=== PATIENT | male | born 1950 ===

== ENCOUNTER 2017-07-15 09:53 | Observation (INO) | payer MEDICARE ==
--- NOTE | 2017-07-15 10:02 | C.PDOC ---
History Of Present Illness POOR HISTORIAN. 67 Y/O MALE BIBA FOR NEW ONSET EPIGASTRIC PAIN FOR 30 MINS PRIOR TO ARRIVAL. PT REPORTS PAIN ONSET WHILE DOING ROUTINE EXERCISE. ALSO REPORTS ASSOCIATED LIGHTHEADEDNESS; NOW IMPROVED, BUT STILL WITH RESIDUAL EPIGASTRIC DISCOMFORT. DENIES CARDIAC HISTORY. REPORTS COMPLIANT WITH BP MEDS AND TOOK REGULAR BP MEDS THIS MORNING. PER EMS, CONCERN FOR DYNAMIC EKG CHANGES EN ROUTE, S/P 500 BOLUS FLUIDS GIVEN BY EMS. EKG STRIP REVIEWED, DYNAMIC CHANGES IN INFERIOR LATERAL LEADS, NO ST CHANGES. OTHERWISE, DENIES FEVER, CHILLS, SOB, NAUSEA, VOMITING, OR OTHER ASSOCIATED SYMPTOMS. Time Seen by Provider: 07/15/17 09:59 Chief Complaint (Nursing): Chest Pain History Per: Patient History/Exam Limitations: no limitations Onset/Duration Of Symptoms: Mins Current Symptoms Are (Timing): Better Quality: "Pain" Associated Symptoms: denies: Dyspnea, Diaphoresis, Syncope Recent travel outside of the [place]: No Past Medical History Reviewed: Historical Data, Nursing Documentation, Vital Signs Vital Signs: Last Vital Signs Temp 97.8 F 07/15/17 09:55 Pulse 52 L 07/15/17 10:48 Resp 16 07/15/17 10:48 BP 119/64 07/15/17 10:48 Pulse Ox 99 07/15/17 10:48 Family History: States: Unknown Family Hx Review Of Systems Except As Marked, All Systems Reviewed And Found Negative. Constitutional: Negative for: Fever, Chills Cardiovascular: Negative for: Palpitations, Light Headedness (RESOLVED) Respiratory: Negative for: Cough, Shortness of Breath, Wheezing Gastrointestinal: Positive for: Abdominal Pain (EPIGASTRIC). Negative for: Nausea, Vomiting Skin: Negative for: Rash Neurological: Negative for: Headache, Dizziness Physical Exam - Physical Exam Appears: Non-toxic, No Acute Distress Skin: Normal Color, Warm, Dry Head: Atraumatic, Normacephalic Oral Mucosa: Moist Chest: Symmetrical Cardiovascular: Rhythm Regular, No Murmur Respiratory: Normal Breath Sounds, No Rales, No Rhonchi, No Wheezing Gastrointestinal/Abdominal: Soft, No Tenderness, No Guarding, No Rebound Back: Normal Inspection Extremity: Normal ROM, Capillary Refill (< 2 SEC. ) Neurological/Psych: Oriented x3, Normal Speech, Normal Cognition ED Course And Treatment - Laboratory Results Result Diagrams: 07/15/17 10:10 07/15/17 10:10 ECG: Interpreted By Me ECG Rhythm: Sinus Bradycardia Interpretation Of ECG: twi v5-6; [id number] Rate From EC Progress - Re-Evaluation Re-evaluation Note: 07/15/17 10:53 EXAM UNCH PRIOR. D/W DR MU PIZANO MARBLE CARVER WILL ADMIT - Data Reviewed Data Reviewed: Lab, Diagnostic imaging, EKG, Old records - Critical Care Citical Care: Excluding Proc Time Critical Care Time: 90 minutes - Continuity of Care Discussed patient case with:: Patient Disposition Counseled Patient/Family Regarding: Studies Performed, Diagnosis, Need For Followup - Disposition Disposition: HOSPITALIZED Disposition Time: 10:54 Condition: STABLE Forms: [employer]Robo (Vincentian) - POA Present On Arrival: None - Clinical Impression Clinical Impression: Chest pain - Scribe Statement The provider has reviewed the documentation as recorded by the Scribe SM All medical record entries made by the Scribe were at my direction and personally dictated by me. I have reviewed the chart and agree that the record accurately reflects my personal performance of the history, physical exam, medical decision making, and the department course for this patient. I have also personally directed, reviewed, and agree with the discharge instructions and disposition. Decision To Admit - Pt Status Changed To: Hospital Disposition Of: Observation - . Bed Request Type: Telemetry Admitting Physician: Quan Huggins Jr. Patient Diagnosis: Chest pain
[2017-07-15] MEDS ORDERED: Aspirin 325 mg EC Tablets PO STA (10:03)
[2017-07-15] MEDS ORDERED: Sodium Chloride 0.9% 1,000 ML IV ONE (10:03)
[2017-07-15] MEDS ORDERED: Sodium Chloride 0.9% 500 ML IV ONE ×2 (10:03→10:15)
[2017-07-15] MEDS ORDERED: Aspirin 325 mg EC Tablets PO ONE (10:15)
[2017-07-15] MEDS ORDERED: Sodium Chloride 0.9% 1,000 ML ONE (10:16)
[2017-07-15 10:17] LABS: EOS # 0.1 K/uL (0.0-0.7); LYMPH # 1.1 K/uL (1.0-4.3); MEAN CORPUSCULAR HGB CONC 34.5 g/dL (33.0-37.0)
[2017-07-15 10:22] LABS: INR 1.1
[2017-07-15 10:29] LABS: BASO % 0.7 % (0.0-2.0); CHLORIDE 100 mmol/L (98-107); EOS % 0.7 % (0.0-4.0); HEMATOCRIT 36.3 % (35.0-51.0); MEAN CELL VOLUME 78.7 fL (80.0-94.0); MEAN CORPUSCULAR HEMOGLOBIN 27.1 pg (27.0-31.0); MEAN PLATELET VOLUME 10.5 fL (7.2-11.7); MONO # 0.7 K/uL (0.0-0.8); MONO % 9.4 % (0.0-10.0); NRBC % 0.4 % (0.0-2.0); RED CELL DISTRIBUTION WIDTH 15.3 % (11.5-14.5); SODIUM 137 mmol/L (132-148); WHITE BLOOD COUNT 7.2 K/uL (4.8-10.8)
[2017-07-15 10:30] LABS: POTASSIUM 3.4 mmol/L (3.6-5.2)
[2017-07-15 10:31] LABS: GFR AFRICAN-AMERICAN > 60
[2017-07-15 10:32] LABS: ALB/GLOB RATIO 1.4 (1.0-2.1); ALKALINE PHOSPHATASE 74 U/L (38-126); ALT/SGPT 35 U/L (21-72); AST/SGOT 19 U/L (17-59); BILIRUBIN,TOTAL 1.5 mg/dL (0.2-1.3); BLOOD UREA NITROGEN 24 mg/dL (9-20); CARBON DIOXIDE 25 mmol/L (22-30); GLUCOSE,RANDOM 178 mg/dL (75-110); TOTAL PROTEIN 6.5 g/dL (6.3-8.3)
[2017-07-15 10:33] LABS: CALCIUM 8.5 mg/dl (8.6-10.4); MAGNESIUM 1.8 mg/dL (1.6-2.3)
--- NOTE | 2017-07-15 10:39 | RAD ---
PROCEDURE: CHEST RADIOGRAPH, 1 VIEW HISTORY: chest pain COMPARISON: None available. FINDINGS: LUNGS: No infiltrate bilaterally. PLEURA: No pneumothorax or pleural fluid seen. CARDIOVASCULAR: Normal. OSSEOUS STRUCTURES: No significant abnormalities. VISUALIZED UPPER ABDOMEN: Normal. OTHER FINDINGS: None. IMPRESSION: No acute cardiopulmonary disease identified.
--- NOTE | 2017-07-15 12:44 | CP.PCM.HP ---
History of Present Illness - History of Present Illness History of Present Illness: PGY1 Medicine Note for Dr. Huggins 67 year old male with a PMHx of HTN, HLD and DM presented to the ED complaining of chest pain. Patient stated the pain started at 9:30 AM while exercising on an abdominal crunch machine. When asked to point the location of the pain, the patient points to his epigastric region, NOT chest. The pain was described as sharp, non-radiating, rated 8/10. The pain lasted about 7 min before resolving on its own. The episode was followed by mild dizziness and weakness. Patient denies sweats unrelated to exercise. Patient states he had a carbohydrate drink this morning before exercising and did not take his Metformin this morning. He usually takes Metformin after meals. As per daughter, this is not the first time that this happened. The patient came to the hospital approximately 3-4 years ago for a similar event. The patient was hospitalized to have a cardiac work up, but everything came back normal, per patient and daughter. The daughter states when this has happened in the past, the patient loses all of the color in his face and looks like he is about to pass out. Of note, patient just returned from a 19 day vacation in two days ago, on which he ate sporadically and did not do his routine morning exercises. Denies recent illness, fever, nausea, vomiting, lightheadedness, SOB. Patient states he does not check his blood sugar at home often. At ED, glucose was 178. PMHx: HTN, HLD, DM Medications: see list Allergies: NKDA FamHx: father had HTN, DM, of [place] at age 83 SocialHx: , lives with ; denies tobacco/alcohol/drug use; tries to eat a vegetarian diet but does eat chicken and fish; retired accountant cost Present on Admission - Present on Admission Any Indicators Present on Admission: No Review of Systems - Constitutional Constitutional: Weakness. absent: Anorexia, Chills, Headache - EENT Eyes: absent: Change in Vision, Loss of Vision Nose/Mouth/Throat: absent: Nasal Congestion, Nasal Discharge, Sore Throat, Neck Pain - Cardiovascular Cardiovascular: Lightheadedness. absent: Chest Pain, Diaphoresis, Edema, Leg Edema, Palpitations, Paroxysmal Nocturnal Dyspnea, Pedal Edema, Radiating Pain, Syncope - Respiratory Respiratory: absent: Dyspnea, Dyspnea on Exertion - Gastrointestinal Gastrointestinal: Abdominal Pain (epigastric, sharp - lasting 7 minutes ). absent: Belching, Bloating, Change in Bowel Habits, Coffee Ground Emesis, Constipation, Cramping, Diarrhea, Melena, Nausea, Vomiting - Musculoskeletal Musculoskeletal: absent: Arthralgias, Muscle Cramps, Numbness, Stiffness, Tingling - Neurological Neurological: absent: Abnormal Gait, Disequilibrium, Dizziness, Numbness, Headaches, Loss of Vision, Syncope, Tingling, Vertigo - Psychiatric Psychiatric: Other (Stress - recently returned from [place], his mother is sick.) - Endocrine Endocrine: absent: Excessive Sweating, Fatigue, Palpitations, Polydipsia, Polyphagia Past Patient History - Past Social History Smoking Status: Never Smoked - CARDIAC Hx Hypertension: Yes - ENDOCRINE/METABOLIC Hx Diabetes Mellitus Type 2: Yes - MUSCULOSKELETAL/RHEUMATOLOGICAL Hx Arthritis: Yes - PSYCHIATRIC Hx Substance Use: No - SURGICAL HISTORY Hx Surgeries: No - ANESTHESIA Hx Anesthesia: No Meds Allergies/Adverse Reactions: Allergies Allergy/AdvReac Type Severity Reaction Status Date / Time No Known Allergies Allergy Verified 07/15/17 09:54 Physical Exam - Constitutional Appears: Well, Toxic, No Acute Distress - Head Exam Head Exam: ATRAUMATIC, NORMOCEPHALIC - Eye Exam Eye Exam: EOMI, Normal appearance, PERRL - ENT Exam ENT Exam: Mucous Membranes Moist - Neck Exam Neck exam: Positive for: Normal Inspection. Negative for: Lymphadenopathy, Tenderness - Respiratory Exam Respiratory Exam: Clear to Auscultation Bilateral, NORMAL BREATHING PATTERN. absent: Accessory Muscle Use, Rales, Rhonchi, Wheezes, Respiratory Distress - Cardiovascular Exam Cardiovascular Exam: Bradycardia, Irregular Rhythm, +S1, +S2. absent: JVD - GI/Abdominal Exam GI & Abdominal Exam: Normal Bowel Sounds, Soft. absent: Distended, Firm, Guarding, Rebound, Rigid, Tenderness - Extremities Exam Extremities exam: Positive for: normal capillary refill, normal inspection, pedal pulses present. Negative for: calf tenderness, pedal edema, tenderness - Back Exam Back exam: NORMAL INSPECTION. absent: CVA tenderness (L), CVA tenderness (R), paraspinal tenderness, tenderness, vertebral tenderness - Neurological Exam Neurological exam: Alert, CN II-XII Intact, Oriented x3 - Psychiatric Exam Psychiatric exam: Normal Affect, Normal Mood - Skin Skin Exam: Dry, Normal Color, Warm Results - Vital Signs Recent Vital Signs: Last Vital Signs Temp 97.8 F 07/15/17 09:55 Pulse 52 L 07/15/17 12:38 Resp 16 07/15/17 12:38 BP 163/77 H 07/15/17 12:38 Pulse Ox 100 07/15/17 12:38 - Labs Result Diagrams: 07/15/17 10:10 07/15/17 10:10 Labs: Laboratory Results - last 24 hr 07/15/17 07/15/17 07/15/17 10:01 10:10 10:10 WBC 7.2 RBC 4.62 Hgb 12.5 Hct 36.3 MCV 78.7 L MCH 27.1 MCHC 34.5 RDW 15.3 H Plt Count 103 L MPV 10.5 Neut % (Auto) 73.2 Lymph % (Auto) 16.0 L Cotton % (Auto) 9.4 Eos % (Auto) 0.7 Baso % (Auto) 0.7 Neut # 5.3 Lymph # 1.1 Cotton # 0.7 Eos # 0.1 Baso # 0.0 Differential Comment PT 12.3 H INR 1.1 APTT 19 L Sodium Potassium Chloride Carbon Dioxide Anion Gap BUN Creatinine Est GFR ( Amer) Est GFR (Non-Af Amer) POC Glucose (mg/dL) 208 H Random Glucose Calcium Magnesium Total Bilirubin AST ALT Alkaline Phosphatase Troponin I Total Protein Albumin Globulin Albumin/Globulin Ratio 07/15/17 10:10 WBC RBC Hgb Hct MCV MCH MCHC RDW Plt Count MPV Neut % (Auto) Lymph % (Auto) Cotton % (Auto) Eos % (Auto) Baso % (Auto) Neut # Lymph # Cotton # Eos # Baso # Differential Comment PT INR APTT Sodium 137 Potassium 3.4 L Chloride 100 Carbon Dioxide 25 Anion Gap 15 BUN 24 H Creatinine 1.4 Est GFR ( Amer) > 60 Est GFR (Non-Af Amer) 50 POC Glucose (mg/dL) Random Glucose 178 H Calcium 8.5 L Magnesium 1.8 Total Bilirubin 1.5 H AST 19 ALT 35 Alkaline Phosphatase 74 Troponin I < 0.0120 Total Protein 6.5 Albumin 3.8 Globulin 2.7 Albumin/Globulin Ratio 1.4 Assessment & Plan - Assessment and Plan (Free Text) Assessment: Epigastric Pain * CXR 07/15/17 - No acute cardio/pulm disease seen * EKG * Troponin - <0.0120; f/u trops x 2 * f/u TSH, T4, ECHO * Aspirin 81mg PO daily * Isosorbide Mononitrate 20mg PO daily * Losartan 100mg PO daily * Crestor 5mg PO HS * HCTZ 12.5 mg PO daily HTN Continue home medications * Isosorbide Mononitrate 20mg PO daily * Losartan 100mg PO daily * HCTZ 12.5mg PO daily HLD Continue home medications * Crestor 5mg PO HS Diabetes * Patient's home medications held * Metformin 1000 PO BID - held * Glimepiride unknown amount - held * Placed on low dose Insulin Sliding Scale * Hypoglycemic protocol Prophylactic Care * Heparin 5000 units SC Q8H * Pepcid 20mg PO daily Will call patient's pharmacy to confirm home medications. Will discuss case with Dr. Bhavna Bocanegra PGY1 - Date & Time Date: 07/15/17 Time: 11:45
[2017-07-15] MEDS ORDERED: Glucagon Recombinant 1 mg Inj IM PRN (13:14)
[2017-07-15] MEDS ORDERED: Dextrose 50% SYRINGE Inj (50 ml) IVP PRN (13:21)
[2017-07-15] MEDS ORDERED: Pneumococcal 23-Valent Vaccine IM ONE (14:28)
[2017-07-15] MEDS ORDERED: Influenza Vaccine 60 mcg/0.5 mL SYR (4YR UP) IM ONE (14:30)
[2017-07-15] MEDS: (Novolog) Insulin Aspart, Recombinant 100 u/ml 10 ml vial SC SCH ×2 (16:58→21:49)
[2017-07-15 23:50] VITALS: RESP 20
[2017-07-16 08:15] LABS: BASO % 0.9 % (0.0-2.0); EOS # 0.1 K/uL (0.0-0.7); EOS % 1.4 % (0.0-4.0); HEMATOCRIT 36.2 % (35.0-51.0); LYMPH # 0.8 K/uL (1.0-4.3); LYMPH % 19.7 % (20.0-40.0); MEAN CORPUSCULAR HEMOGLOBIN 27.5 pg (27.0-31.0); MEAN CORPUSCULAR HGB CONC 34.9 g/dL (33.0-37.0); MEAN PLATELET VOLUME 10.8 fL (7.2-11.7); MONO # 0.4 K/uL (0.0-0.8); MONO % 9.5 % (0.0-10.0); NRBC % 0.1 % (0.0-2.0); RED CELL DISTRIBUTION WIDTH 15.1 % (11.5-14.5); WHITE BLOOD COUNT 4.2 K/uL (4.8-10.8)
[2017-07-16 08:37] LABS: CHLORIDE 101 mmol/L (98-107)
[2017-07-16 08:38] LABS: POTASSIUM 3.7 mmol/L (3.6-5.2); SODIUM 136 mmol/L (132-148)
[2017-07-16 08:40] LABS: AST/SGOT 23 U/L (17-59); BILIRUBIN,TOTAL 1.2 mg/dL (0.2-1.3); CARBON DIOXIDE 25 mmol/L (22-30); GFR AFRICAN-AMERICAN > 60
[2017-07-16 08:41] LABS: ALB/GLOB RATIO 1.3 (1.0-2.1); ALKALINE PHOSPHATASE 72 U/L (38-126); ALT/SGPT 29 U/L (21-72); BLOOD UREA NITROGEN 19 mg/dL (9-20); CALCIUM 8.7 mg/dl (8.6-10.4); GLUCOSE,RANDOM 148 mg/dL (75-110); TOTAL PROTEIN 6.5 g/dL (6.3-8.3)
[2017-07-16 09:11] LABS: THYROID STIMULATING HORMONE 0.97 mIU/L (0.46-4.68)
[2017-07-16] MEDS: (Novolog) Insulin Aspart, Recombinant 100 u/ml 10 ml vial SC SCH ×3 (10:24→17:27)
[2017-07-16 15:46] VITALS: BP 154/80; PULSE 50; TEMP 97.2; O2SAT 99
--- NOTE | 2017-07-16 18:33 | CP.PCM.DIS ---
Provider - Provider Date of Admission: 07/15/17 10:54 Attending physician: Quan Huggins Jr, MD Time Spent in preparation of Discharge (in minutes): 33 Diagnosis - Discharge Diagnosis (1) Chest pain, rule out acute myocardial infarction Status: Acute (2) Epigastric abdominal pain Status: Acute (3) Hypertension Status: Chronic (4) Hyperlipidemia Status: Chronic (5) Diabetes Status: Chronic (6) Prophylactic measure Status: Acute Hospital Course - Lab Results Lab Results: Most Recent Lab Values WBC 4.2 K/uL (4.8-10.8) L 07/16/17 07:56 RBC 4.59 Mil/uL (4.40-5.90) 07/16/17 07:56 Hgb 12.6 g/dL (12.0-18.0) 07/16/17 07:56 Hct 36.2 % (35.0-51.0) 07/16/17 07:56 MCV 79.0 fL (80.0-94.0) L 07/16/17 07:56 MCH 27.5 pg (27.0-31.0) 07/16/17 07:56 MCHC 34.9 g/dL (33.0-37.0) 07/16/17 07:56 RDW 15.1 % (11.5-14.5) H 07/16/17 07:56 Plt Count 98 K/uL (130-400) L 07/16/17 07:56 MPV 10.8 fL (7.2-11.7) 07/16/17 07:56 Neut % (Auto) 68.5 % (50.0-75.0) 07/16/17 07:56 Lymph % (Auto) 19.7 % (20.0-40.0) L 07/16/17 07:56 Guthrie % (Auto) 9.5 % (0.0-10.0) 07/16/17 07:56 Eos % (Auto) 1.4 % (0.0-4.0) 07/16/17 07:56 Baso % (Auto) 0.9 % (0.0-2.0) 07/16/17 07:56 Neut # 2.9 K/uL (1.8-7.0) 07/16/17 07:56 Lymph # 0.8 K/uL (1.0-4.3) L 07/16/17 07:56 Guthrie # 0.4 K/uL (0.0-0.8) 07/16/17 07:56 Eos # 0.1 K/uL (0.0-0.7) 07/16/17 07:56 Baso # 0.0 K/uL (0.0-0.2) 07/16/17 07:56 Differential Comment 07/15/17 10:10 PT 12.3 SECONDS (9.7-12.2) H 07/15/17 10:10 INR 1.1 07/15/17 10:10 APTT 19 SECONDS (21-34) L 07/15/17 10:10 Sodium 136 mmol/L (132-148) 07/16/17 07:56 Potassium 3.7 mmol/L (3.6-5.2) 07/16/17 07:56 Chloride 101 mmol/L (98-107) 07/16/17 07:56 Carbon Dioxide 25 mmol/L (22-30) 07/16/17 07:56 Anion Gap 13 (10-20) 07/16/17 07:56 BUN 19 mg/dL (9-20) 07/16/17 07:56 Creatinine 1.1 mg/dL (0.8-1.5) 07/16/17 07:56 Est GFR ( Amer) > 60 07/16/17 07:56 Est GFR (Non-Af Amer) > 60 07/16/17 07:56 POC Glucose (mg/dL) 149 mg/dL (65-110) H 07/16/17 17:01 Random Glucose 148 mg/dL (75-110) H 07/16/17 07:56 Hemoglobin A1c 5.7 % (4.2-6.5) 07/16/17 07:56 Calcium 8.7 mg/dl (8.6-10.4) 07/16/17 07:56 Magnesium 1.8 mg/dL (1.6-2.3) 07/15/17 10:10 Total Bilirubin 1.2 mg/dL (0.2-1.3) 07/16/17 07:56 AST 23 U/L (17-59) 07/16/17 07:56 ALT 29 U/L (21-72) 07/16/17 07:56 Alkaline Phosphatase 72 U/L (38-126) 07/16/17 07:56 Total Creatine Kinase 46 U/L (55-170) L 07/15/17 22:38 CK-MB (Mass) 0.65 ng/mL (0.0-3.38) 07/15/17 22:38 Troponin I < 0.0120 ng/mL (0.00-0.120) 07/15/17 10:10 Troponin I, Quant < 0.0120 ng/mL (0.00-0.120) 07/15/17 22:38 Total Protein 6.5 g/dL (6.3-8.3) 07/16/17 07:56 Albumin 3.7 g/dL (3.5-5.0) 07/16/17 07:56 Globulin 2.8 gm/dL (2.2-3.9) 07/16/17 07:56 Albumin/Globulin Ratio 1.3 (1.0-2.1) 07/16/17 07:56 Thyroxine (T4) 6.20 ug/dL (5.5-11.0) 07/16/17 07:56 TSH 3rd Generation 0.97 mIU/L (0.46-4.68) 07/16/17 07:56 - Hospital Course Hospital Course: On admission: "67 year old male with a PMHx of HTN, HLD and DM presented to the ED complaining of chest pain. Patient stated the pain started at 9:30 AM while exercising on an abdominal crunch machine. When asked to point the location of the pain, the patient points to his epigastric region, NOT chest. The pain was described as sharp, non-radiating, rated 8/10. The pain lasted about 7 min before resolving on its own. The episode was followed by mild dizziness and weakness. Patient denies sweats unrelated to exercise. Patient states he had a carbohydrate drink this morning before exercising and did not take his Metformin this morning. He usually takes Metformin after meals. As per daughter , this is not the first time that this happened. The patient came to the hospital approximately 3-4 years ago for a similar event. The patient was hospitalized to have a cardiac work up, but everything came back normal, per patient and daughter. The daughter states when this has happened in the past, the patient loses all of the color in his face and looks like he is about to pass out. Of note, patient just returned from a 19 day vacation in two days ago, on which he ate sporadically and did not do his routine morning exercises. Denies recent illness, fever, nausea, vomiting, lightheadedness, SOB. Patient states he does not check his blood sugar at home often. At ED, glucose was 178." Hospital Course: Patient admitted to the hospital for chest pain and to rule out ACS. EKG and troponins were unremarkable for acute pathology. The pain in the epigastric region began after doing crunches with a certain piece of gym equipment per patient. Patient reports resolution of pain on day of discharge. 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 Discharge Exam - Head Exam Head Exam: ATRAUMATIC, NORMOCEPHALIC - Eye Exam Eye Exam: EOMI, PERRL - ENT Exam ENT Exam: Mucous Membranes Moist - Respiratory Exam Respiratory Exam: Clear to PA & Lateral, NORMAL BREATHING PATTERN. absent: Rales, Rhonchi, Wheezes, Respiratory Distress - Cardiovascular Exam Cardiovascular Exam: REGULAR RHYTHM, +S1, +S2 - GI/Abdominal Exam GI & Abdominal Exam: Normal Bowel Sounds, Soft. absent: Tenderness - Neurological Exam Neurological exam: Alert, CN II-XII Intact, Oriented x3 - Psychiatric Exam Psychiatric exam: Normal Affect, Normal Mood - Skin Skin Exam: Dry, Intact, Normal Color, Warm Discharge Plan - Follow Up Plan Condition: STABLE Disposition: HOME/ ROUTINE Instructions: Chest Pain (DC), Heart Healthy Diet (DC) Additional Instructions: Resume all of your home medications. Please follow up with your primary doctor within 1 week of discharge. Please follow up with your oil field laborer also within the week. If there are any new or worsening symptoms, please return to the emergency room. Reanude todos riccardo medicamentos en [facility]. Por favor, siga con dallas mdico de cabecera dentro de 1 semana de har[place]. Por favor, siga con dallas cardilogo tambin dentro de la semana. Si hay sntomas nuevos o que empeoran, por favor regrese a la sen de emergencias. Referrals: Quan Huggins Jr., MD [Medical Doctor] -
--- NOTE | 2017-07-17 10:45 | CARD ---
APPROVED REPORT EXAM: Two-dimensional and M-mode echocardiogram with Doppler and color Doppler. INDICATION Chest Pain Syncope RISK FACTORS Hypertension Hyperlipidemia Diabetes 2D DIMENSIONS IVSd1.1 (0.7-1.1cm)LVDd4.7 (3.9-5.9cm) PWd1.2 (0.7-1.1cm)LVDs2.9 (2.5-4.0cm) FS (%) 36.9 %LVEF (%)66.7 (>50%) M-Mode DIMENSIONS Left Atrium (MM)4.65 (2.5-4.0cm)Aortic Root3.92 (2.2-3.7cm) Mitral Valve MV E Foogdinw90.6cm/sMV A Wrnvphsc12.5cm/sE/A ratio1.0 TDI E/Lateral E'0.0E/Medial E'0.0 Tricuspid Valve TR Peak Uxuurogh607es/sTR Peak [id number] LEFT VENTRICLE The left ventricle is normal size. There is mildy increased left ventricular wall thickness. The left ventricular function is normal. The left ventricular ejection fraction is within the normal range. About 65% No regional wall motion abnormalities noted. The left ventricular diastolic function is indeterminate. No left ventricle thrombus noted on this study. There is no ventricular septal defect visualized. There is no left ventricular aneurysm. There is no mass noted in the left ventricle. RIGHT VENTRICLE The right ventricle is normal size. There is normal right ventricular wall thickness. The right ventricular systolic function is normal. ATRIA The left atrial volume index is moderately dilated. The right atrium size is normal. The interatrial septum is intact with no evidence for an atrial septal defect. AORTIC VALVE The aortic valve is normal in structure and function. No aortic regurgitation is present. There is no aortic valvular stenosis. There is no aortic valvular vegetation. MITRAL VALVE The mitral valve is normal in structure and function. There is no evidence of mitral valve prolapse. There is no mitral valve stenosis. There is no mitral valve regurgitation noted. TRICUSPID VALVE The tricuspid valve is normal in structure and function. There is no tricuspid valve regurgitation noted. There is no tricuspid valve prolapse or vegetation. There is no tricuspid valve stenosis. PULMONIC VALVE The pulmonary valve is normal in structure and function. There is no pulmonic valvular regurgitation. There is no pulmonic valvular stenosis. GREAT VESSELS The aortic root is normal in size. The ascending aorta is mildly dilated at 4.2 cm. The pulmonary artery is normal. The IVC is normal in size and collapses >50% with inspiration. PERICARDIAL EFFUSION The pericardium appears normal. There is no pleural effusion. <Conclusion> Normal LV systolic function. The left atrial volume index is moderately dilated. There is mildy increased left ventricular wall thickness. The ascending aorta is mildly dilated at 4.2 cm. Normal Doppler.
--- NOTE | 2017-07-17 10:51 | CARD ---
APPROVED REPORT EKG Measurement Heart [id number] <Conclusion> Sinus bradycardia with sinus arrhythmia T wave abnormality, consider lateral ischemia Prolonged QT Abnormal ECG
== END 2017-07-16 19:41 | disposition home or self-care (01) ==
LOC: C.ER 09:53 → C.9E 10:54 → C.5S 12:33
PROVIDERS: ADMIT Internal Medicine; ATTEND Internal Medicine
DX: R10.13 Epigastric pain (principal); R07.9 Chest pain, unspecified; I10 Essential (primary) hypertension; E78.5 Hyperlipidemia, unspecified; Z79.82 Long term (current) use of aspirin; E11.9 Type 2 diabetes mellitus without complications; Z79.899 Other long term (current) drug therapy; Z82.49 Family history of ischemic heart disease and other diseases of the circulatory system; Z83.3 Family history of diabetes mellitus
CPT/HCPCS: 36415; 71010; 80053; 82948; 83036; 83735; 84436; 84443; 84484; 85025; 85610; 85730; 93005; 93306; 96374; 97116; 97161; 99285; G0378; G8978; G8979; G8980; J1644; J2270; J7040

== ENCOUNTER 2019-03-12 13:52 | Observation (INO) | payer MEDICARE ==
[2019-03-12 14:06] VITALS: BMI 24.5
[2019-03-12] MEDS ORDERED: Sodium Chloride 0.9% 1,000 ML IV ONE (14:22)
[2019-03-12 14:27] LABS: BASO % 0.9 % (0.0-2.0); EOS # 0.1 K/uL (0.0-0.7); EOS % 1.5 % (0.0-4.0); HEMOGLOBIN 11.9 g/dL (12.0-18.0); LYMPH # 1.7 K/uL (1.0-4.3); LYMPH % 35.1 % (20.0-40.0); MEAN CORPUSCULAR HEMOGLOBIN 26.4 pg (27.0-31.0); MONO # 0.8 K/uL (0.0-0.8); MONO % 16.4 % (0.0-10.0); NEUT # 2.2 K/uL (1.8-7.0); NEUT % 46.1 % (50.0-75.0); NRBC % 0.1 % (0.0-2.0); RBC 4.51 Mil/uL (4.40-5.90); RED CELL DISTRIBUTION WIDTH 15.1 % (11.5-14.5); WHITE BLOOD COUNT 4.8 K/uL (4.8-10.8)
[2019-03-12 14:30] LABS: MEAN CELL VOLUME 75.4 fL (80.0-94.0)
[2019-03-12 14:35] LABS: INR 1.1; PARTIAL THROMBOPLASTIN TIME 27.7 SECONDS (21-34); PROTHROMBIN TIME 12.3 SECONDS (9.7-12.2)
[2019-03-12 14:44] LABS: ALB/GLOB RATIO 1.6 (1.0-2.1); ALBUMIN 4.3 g/dL (3.5-5.0); ALT/SGPT 26 U/L (21-72); AST/SGOT 35 U/L (17-59); BLOOD UREA NITROGEN 22 mg/dL (9-20); CALCIUM 9.1 mg/dl (8.6-10.4); GFR NON-AFRICAN AMERICAN 38
--- NOTE | 2019-03-12 15:56 | RAD ---
Chest x-ray two views HISTORY: Shortness of breath. Comparison: 07/15/2017 Findings: Mild venous congestion. Patchy increased markings at the lung bases. Tortuous ectatic aorta. Mild cardiomegaly. Right paratracheal prominence may represent prominent vasculature. Degenerative changes in the spine and shoulders. Impression: Mild venous congestion. Patchy increased markings at the lung bases. Tortuous ectatic aorta. Mild cardiomegaly. Right paratracheal prominence may represent prominent vasculature.
--- NOTE | 2019-03-12 16:27 | C.PDOC ---
History Of Present Illness 68 year old male with a history of hypertension and diabetes is brought in to the emergency department via EMS status-post syncopal episode at [facility]. Patient was walking outside in the [place], reportedly felt "woozy" and fell on the floor. Patient was awake by the time EMS arrived, but does not remember falling. Patient reports sustaining an abrasion to the right side of his head, as well as incontinence of urine and stool during the episode. Patient currently complains of slight headache, slight dizziness. Patient is bradycardic and hypotensive in the ED. Patient denies fever, chills, nausea, vom iting, dysuria, and abdominal pain. Time Seen by Provider: 03/12/19 14:08 Chief Complaint (Nursing): Syncope History Per: Patient History/Exam Limitations: no limitations Onset/Duration Of Symptoms: Hrs Current Symptoms Are (Timing): Still Present Number Of Syncopal Episodes: 1 Activity At Onset Of Symptoms: Walking Associated Symptoms Preceding Syncopal Episode: No Predromal Symptoms (Sudden Onset) Seizure Or Post-ictal Symptoms: None Fall Associated With With Symptoms: Yes, Positive Injury Past Medical History Reviewed: Historical Data, Nursing Documentation, Vital Signs Vital Signs: Last Vital Signs Temp 97.4 F L 03/12/19 14:06 Pulse 68 03/12/19 15:48 Resp 14 03/12/19 15:48 BP 140/74 03/12/19 15:48 Pulse Ox 100 03/12/19 15:48 Primary Care Provider: Aline Aguayo - Medical History PMH: Arthritis, HTN Surgical History: No Surg Hx Family History: States: No Known Family Hx - Social History Hx Alcohol Use: No Hx Substance Use: No - Immunization History Hx Tetanus Toxoid Vaccination: No Hx Influenza Vaccination: No Hx Pneumococcal Vaccination: No Review Of Systems Except As Marked, All Systems Reviewed And Found Negative. Constitutional: Negative for: Fever, Chills, Weakness Cardiovascular: Negative for: Chest Pain Respiratory: Negative for: Cough, Shortness of Breath Gastrointestinal: Negative for: Nausea, Vomiting, Abdominal Pain Genitourinary: Positive for: Incontinence. Negative for: Dysuria Physical Exam - Physical Exam Appears: Non-toxic, No Acute Distress Skin: Normal Color, Warm, Dry Head: Normacephalic, Abrasion (small abrasion to the right temporal area) Eye(s): bilateral: Normal Inspection, PERRL, EOMI Nose: Normal Oral Mucosa: Moist Neck: Normal, Supple Chest: Symmetrical, No Tenderness Cardiovascular: Rhythm Regular (bradycardic), No Murmur Respiratory: Normal Breath Sounds, No Rales, No Rhonchi, No Wheezing Gastrointestinal/Abdominal: Soft, No Tenderness, No Guarding, No Rebound Extremity: Normal ROM Neurological/Psych: Oriented x3, Normal Speech, Normal Cognition ED Course And Treatment - Laboratory Results Result Diagrams: 03/12/19 14:15 03/12/19 14:15 Lab Results: PT 12.3 SECONDS (9.7-12.2) H 03/12/19 14:15 INR 1.1 03/12/19 14:15 APTT 27.7 SECONDS (21-34) 03/12/19 14:15 Troponin I < 0.0120 ng/mL (0.00-0.120) 03/12/19 14:15 NT-Pro-B Natriuret Pep 268 pg/mL (0-900) 03/12/19 14:27 Total Bilirubin 0.8 mg/dL (0.2-1.3) 03/12/19 14:15 AST 35 U/L (17-59) 03/12/19 14:15 ALT 26 U/L (21-72) 03/12/19 14:15 Alkaline Phosphatase 88 U/L (38-126) 03/12/19 14:15 Total Protein 7.0 g/dL (6.3-8.3) 03/12/19 14:15 Albumin 4.3 g/dL (3.5-5.0) 03/12/19 14:15 Globulin 2.7 gm/dL (2.2-3.9) 03/12/19 14:15 Albumin/Globulin Ratio 1.6 (1.0-2.1) 03/12/19 14:15 O2 Sat by Pulse Oximetry: 100 (RA) Pulse Ox Interpretation: Normal Medical Decision Making Medical Decision Making: Plan: CT Head EKG Chemistry Bloodwork CXR Glucose POC NaCl IV Fluids Tylenol 650mg PO Urine Culture Giving fluids, watching blood pressure, admit to telemetry for observation. Disposition Discussed With : Raudel Mcgrath - Disposition Disposition: HOSPITALIZED Disposition Time: 16:27 Condition: GUARDED - POA Present On Arrival: None - Clinical Impression Clinical Impression: Syncope - Scribe Statement The provider has reviewed the documentation as recorded by the Scribe (Jagdish Adriano) Provider Attestation: All medical record entries made by the Scribe were at my direction and personally dictated by me. I have reviewed the chart and agree that the record accurately reflects my personal performance of the history, physical exam, medical decision making, and the department course for this patient. I have also personally directed, reviewed, and agree with the discharge instructions and disposition. Decision To Admit - Pt Status Changed To: Hospital Disposition Of: Observation - . Bed Request Type: Telemetry Admitting Physician: Raudel Mcgrath Patient Diagnosis: Syncope
--- NOTE | 2019-03-12 16:50 | CP.PCM.HP ---
History of Present Illness - History of Present Illness History of Present Illness: 68 year old male with a PMHx of HTN, HLD and DM presented to the ED via EMS after syncopal episode. Patient reports being at [employer] today. He said he sat down in a chair "because he was feeling hot." States he lost consc iousness and hit his head on the pavement. Admits prodrome of dizziness right before losing consciousness, but denies chest pain or palpitations. Patient states he also became incontinent to bowel and bladder. EMS notes initial BG was 258. He denies history of seizure, and states that no observer at the [facility] "saw him shaking." Admits checking his blood sugar at home and states it was around "150" this AM. 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 PMHx: HTN, HLD, DM PSHx: denies Medications: Unknown doses of HCTZ, Losartan, Metformin, and Glipizide (pt daughter will bring list) Allergies: NKDA FamHx: father had HTN, DM, of [place] at age 83 SocialHx: , lives with ; denies tobacco/alcohol/drug use; tries to eat a vegetarian diet but does eat chicken and fish; retired senior financial accountant PMD: Olivier ; Cardio: Micky Present on Admission - Present on Admission Any Indicators Present on Admission: No Review of Systems - Constitutional Constitutional: Headache. absent: Chills, Fever - EENT Eyes: absent: Change in Vision Ears: absent: Ear Discharge Nose/Mouth/Throat: absent: Nasal Discharge, Hoarsness - Cardiovascular Cardiovascular: absent: Chest Pain, Dyspnea - Genitourinary Genitourinary: absent: Dysuria, Urinary Urgency - Musculoskeletal Musculoskeletal: absent: Muscle Weakness, Numbness, Tingling - Integumentary Integumentary: absent: Dry Skin, Wounds - Neurological Neurological: Weakness - Psychiatric Psychiatric: absent: Anxiety - Endocrine Endocrine: absent: Fatigue, Polyuria Past Patient History - Past Medical History & Family History Past Medical History?: Yes - Past Social History Smoking Status: Never Smoked - CARDIAC Hx Hypertension: Yes - ENDOCRINE/METABOLIC Hx Diabetes Mellitus Type 2: Yes - MUSCULOSKELETAL/RHEUMATOLOGICAL Hx Arthritis: Yes - PSYCHIATRIC Hx Substance Use: No - SURGICAL HISTORY Hx Surgeries: No - ANESTHESIA Hx Anesthesia: No Meds Allergies/Adverse Reactions: Allergies Allergy/AdvReac Type Severity Reaction Status Date / Time No Known Allergies Allergy Verified 03/12/19 14:10 Physical Exam - Constitutional Appears: Non-toxic, No Acute Distress - Head Exam Head Exam: ATRAUMATIC, NORMAL INSPECTION, NORMOCEPHALIC - Eye Exam Eye Exam: EOMI, Normal appearance, PERRL Pupil Exam: absent: Fixed - ENT Exam ENT Exam: Mucous Membranes Moist - Respiratory Exam Respiratory Exam: Clear to Auscultation Bilateral, NORMAL BREATHING PATTERN. absent: Rales, Rhonchi, Wheezes - Cardiovascular Exam Cardiovascular Exam: Bradycardia, +S1, +S2 - GI/Abdominal Exam GI & Abdominal Exam: Normal Bowel Sounds, Soft. absent: Tenderness - Extremities Exam Extremities exam: Positive for: normal inspection. Negative for: pedal edema, tenderness - Back Exam Back exam: absent: CVA tenderness (L), CVA tenderness (R) - Neurological Exam Neurological exam: Alert, CN II-XII Intact, Oriented x3 - Expanded Neurological Exam Expanded Patient oriented to: person, place, time Cranial nerves: EOM's Intact: Normal, Nystagmus: Normal, Tongue Deviation: Normal Cerebellar Function: Finger to Nose: Normal, Heel to Rodriguez: Normal, Romberg: Normal Upper motor neuron: Babinski Sign: Normal, Pronator Drift: Normal Sensory exam: Lower Extremity Light Touch: Normal, Upper Extremity Light Touch: Normal Neuro motor strength exam: Left Upper Extremity: 5, Right Upper Extremity: 5, Left Lower Extremity: 5, Right Lower Extremity: 5 Coma Scale Eye Opening: SPONTANEOUS Coma Scale Motor Response: OBEYS COMMANDS Coma Scale Verbal: Oriented Coma Scale Total: 15 - Psychiatric Exam Psychiatric exam: Normal Affect, Normal Mood - Skin Skin Exam: Dry, Normal Color, Warm Additional comments: Abrasion on right temporal area Mild swelling on right frontal sinus head Results - Vital Signs Recent Vital Signs: Last Vital Signs Temp 97.4 F L 03/12/19 14:06 Pulse 68 03/12/19 15:48 Resp 14 03/12/19 15:48 BP 140/74 03/12/19 15:48 Pulse Ox 100 03/12/19 16:27 - Labs Result Diagrams: 03/13/19 07:45 03/13/19 07:45 Labs: Laboratory Results - last 24 hr 03/12/19 03/12/19 03/12/19 14:02 14:15 14:15 WBC 4.8 RBC 4.51 Hgb 11.9 L Hct 34.0 L MCV 75.4 L D MCH 26.4 L MCHC 35.0 RDW 15.1 H Plt Count 130 MPV 11.0 Neut % (Auto) 46.1 L Lymph % (Auto) 35.1 [place] % (Auto) 16.4 H Eos % (Auto) 1.5 Baso % (Auto) 0.9 Neut # (Auto) 2.2 Lymph # (Auto) 1.7 [place] # (Auto) 0.8 Eos # (Auto) 0.1 Baso # (Auto) 0.0 PT 12.3 H INR 1.1 APTT 27.7 Sodium Potassium Chloride Carbon Dioxide Anion Gap BUN Creatinine Est GFR ( Amer) Est GFR (Non-Af Amer) POC Glucose (mg/dL) 258 H Random Glucose Calcium Total Bilirubin AST ALT Alkaline Phosphatase Troponin I NT-Pro-B Natriuret Pep Total Protein Albumin Globulin Albumin/Globulin Ratio 03/12/19 03/12/19 14:15 14:27 WBC RBC Hgb Hct MCV MCH MCHC RDW Plt Count MPV Neut % (Auto) Lymph % (Auto) [place] % (Auto) Eos % (Auto) Baso % (Auto) Neut # (Auto) Lymph # (Auto) [place] # (Auto) Eos # (Auto) Baso # (Auto) PT INR APTT Sodium 140 Potassium 3.3 L Chloride 101 Carbon Dioxide 26 Anion Gap 16 BUN 22 H Creatinine 1.8 H Est GFR ( Amer) 45 Est GFR (Non-Af Amer) 38 POC Glucose (mg/dL) Random Glucose 225 H D Calcium 9.1 Total Bilirubin 0.8 AST 35 ALT 26 Alkaline Phosphatase 88 Troponin I < 0.0120 NT-Pro-B Natriuret Pep 268 Total Protein 7.0 Albumin 4.3 Globulin 2.7 Albumin/Globulin Ratio 1.6 Assessment & Plan - Assessment and Plan (Free Text) Plan: Syncope Tele/Obs Etiology: Vasovagal vs Hypoglycemia vs. Hypotension vs Cardiogenic EMS BG initial: 258 at scene EKG (6/2/19): Bradycardia @ 53 bpm; 1 degree AV block - WA interval 230ms; Left axis deviation; No acute ST/T wave changes Troponin negative x 1; f/u 2 additional q6H CXR (03/12/19): Mild venous congestion. Patchy markings at lung bases. Tortuous ectatic aorta. Mild cardiomegaly. UDS negative f/u urine culture f/u CT head, ECHO, carotid doppler Type Two Diabetes Mellitus Takes unknown doses of Metformin/Glipizide per pt -Due to GFR patient may not be able tolerate Metformin anymore BG 259 on presentation Accuchecks Hypoglycemia protocol NICOLA f/u A1C (MONIK on?) CKD Cr baseline on previous admissions (1.1) GFR 38 LR @ 75cc/hr HTN Initially hypotensive in ED () - responded well to 1L fluid bolus Takes unknown home doses of HCTZ, Losartan Will monitor overnight and add on as needed Anemia, Microcytic Most likely anemia of chronic Dz (CKD) MCV 75.4, RDW 15.1 Venous congestion Seen on CXR above BNP 268 Bradycardia HR 40s on presentation EKG (03/12/19): Bradycardia @ 53 bpm; 1 degree AV block - WA interval 230ms; Left axis deviation; No acute ST/T wave changes Monitor on tele Electrolyte Abnormality Hypokalemia; repleted f/u AM CMP PPX SCDs; Heparin 5k units SC Q12H GI not indicated Disposition: Will monitor overnight before considering consultations; Await family bringing med list; F/u imaging and labs D/w attending, Dr Ramila Gunter PGY3
[2019-03-12 17:37] LABS: BARBITURATES, UR NEGATIVE (NEGATIVE); BENZODIAZEPINES, UR NEGATIVE (NEGATIVE); OPIATES, UR NEGATIVE (NEGATIVE); PHENCYCLIDINE, UR NEGATIVE (NEGATIVE)
[2019-03-12] MEDS ORDERED: Potassium Chloride 20 mEq ER Tab PO ONE ×2 (18:11→22:16)
[2019-03-12 18:33] VITALS: RESP 20
[2019-03-12] MEDS ORDERED: Dextrose 50% SYRINGE Inj (50 ml) IV PRN (18:41)
[2019-03-12] MEDS ORDERED: Glucagon Recombinant 1 mg Inj IM PRN (18:41)
[2019-03-12 21:06] LABS: CK-MB < 0.22 ng/mL (0.0-3.38)
[2019-03-12] MEDS: (Novolin R) Insulin Human Regular 100 units/ml vial SC SCH (23:39)
[2019-03-13] MEDS: Lactated Ringer's 1,000 ML IV SCH ×2 (01:35→08:43)
[2019-03-13 03:18] LABS: CK-MB < 0.22 ng/mL (0.0-3.38)
[2019-03-13] MEDS: (Novolin R) Insulin Human Regular 100 units/ml vial SC SCH ×4 (07:42→21:33)
[2019-03-13 07:56] LABS: EOS # 0.1 K/uL (0.0-0.7); HEMOGLOBIN 11.3 g/dL (12.0-18.0); MONO # 0.4 K/uL (0.0-0.8); NEUT # 2.4 K/uL (1.8-7.0)
[2019-03-13 08:14] LABS: BASO % 1.2 % (0.0-2.0); LYMPH # 0.7 K/uL (1.0-4.3); MEAN CELL VOLUME 75.3 fL (80.0-94.0)
--- NOTE | 2019-03-13 08:16 | CT ---
Date of service: 03/12/2019 PROCEDURE: CT HEAD WITHOUT CONTRAST. HISTORY: Syncope. COMPARISON: None available. TECHNIQUE: Axial computed tomography images were obtained through the head/brain without intravenous contrast. Radiation dose: Total exam DLP = 1099.33 mGy-cm. This CT exam was performed using one or more of the following dose reduction techniques: Automated exposure control, adjustment of the mA and/or kV according to patient size, and/or use of iterative reconstruction technique. FINDINGS: HEMORRHAGE: No intracranial hemorrhage. BRAIN: No mass effect or edema. Scattered focal lucencies in the subcortical and periventricular white matter suggestive for chronic microvascular ischemic change. Punctate hypodensities in the left basal ganglia may represent small lacunar infarcts. VENTRICLES: Unremarkable. No hydrocephalus. CALVARIUM: Unremarkable. PARANASAL SINUSES: Unremarkable as visualized. No significant inflammatory changes. MASTOID AIR CELLS: Unremarkable as visualized. No inflammatory changes. OTHER FINDINGS: Intracranial arterial calcifications. IMPRESSION: No acute intracranial abnormality. If symptoms persists, consider correlation with MRI. A preliminary report was generated at 6:20 p.m. on 03/12/[address] Tim Valdivia from [employer].
[2019-03-13 08:20] LABS: EOS % 2.5 % (0.0-4.0); LYMPH % 18.3 % (20.0-40.0); MEAN CORPUSCULAR HEMOGLOBIN 26.4 pg (27.0-31.0); MEAN PLATELET VOLUME 10.7 fL (7.2-11.7); MONO % 11.8 % (0.0-10.0); NEUT % 66.2 % (50.0-75.0); NRBC % 0.4 % (0.0-2.0); RBC 4.27 Mil/uL (4.40-5.90); RED CELL DISTRIBUTION WIDTH 15.3 % (11.5-14.5); WHITE BLOOD COUNT 3.7 K/uL (4.8-10.8)
[2019-03-13 08:24] LABS: ALB/GLOB RATIO 1.6 (1.0-2.1); ALT/SGPT 21 U/L (21-72); AST/SGOT 20 U/L (17-59); BLOOD UREA NITROGEN 15 mg/dL (9-20); CALCIUM 8.9 mg/dl (8.6-10.4); GFR NON-AFRICAN AMERICAN > 60; HDL CHOLESTEROL 29 mg/dL (30-70)
[2019-03-13 08:25] LABS: LDL CHOLESTEROL 49 mg/dL (0-129)
--- NOTE | 2019-03-13 11:18 | VASCLAB ---
Date of service: 03/13/2019 PROCEDURE: Carotid Duplex Exam. HISTORY: syncopal episode COMPARISON: None available. TECHNIQUE: Grayscale and duplex Doppler evaluation of the cervical carotid and vertebral arteries were performed. The common carotid, carotid bifurcations and cervical Internal Carotid Artery (ICA) and proximal External Carotid Artery (ECA) were evaluated. The vertebral arteries were evaluated for gross patency and flow direction. Report prepared by Checo Ortega, BS, RVT FINDINGS: RIGHT CAROTID ARTERIES: 1. Common Carotid Artery: No significant focal plaque formation of the right common carotid artery. Maximum Peak Systolic velocity: 61 cm/sec: End-diastolic velocity 14 cm/sec. 2. Carotid Bifurcation: plaque formation. Maximum Peak Systolic velocity: 51 cm/sec: End-diastolic velocity 13 cm/sec. 3. Internal Carotid Artery: Plaque description: 3.1. Proximal Segment: Peak systolic velocity 56 cm/sec: End-diastolic velocity 14 cm/sec - % stenosis 0-15% 3.2. Middle Segment: Peak systolic velocity 84 cm/sec: End-diastolic velocity 27 cm/sec - % stenosis 0-15% 3.3. Distal Segment: Peak systolic velocity 84 cm/sec: End-diastolic velocity 26 cm/sec - % stenosis 0-15% 4. External Carotid Artery: No significant focal plaque formation. Peak systolic velocity 83 cm/sec 5. ICA/CCA Ratio: 1.4 LEFT CAROTID ARTERIES: 1. Common Carotid Artery: No significant focal plaque formation of the left common carotid artery. Maximum Peak Systolic velocity: 64 cm/sec: End-diastolic velocity 19 cm/sec. 2. Carotid Bifurcation: plaque formation. Maximum Peak Systolic velocity: 52 cm/sec: End-diastolic velocity 11 cm/sec. 3. Internal Carotid Artery: Plaque description: 3.1. Proximal Segment: Peak systolic velocity 74 cm/sec: End-diastolic velocity 20 cm/sec - % stenosis 0-15% 3.2. Middle Segment: Peak systolic velocity 86 cm/sec: End-diastolic velocity 26 cm/sec - % stenosis 0-15% 3.3. Distal Segment: Peak systolic velocity 77 cm/sec: End-diastolic velocity 25 cm/sec - % stenosis 0-15% 4. External Carotid Artery: No significant focal plaque formation. Peak systolic velocity 71 cm/sec 5. ICA/CCA Ratio: 1.3 VERTEBRAL ARTERIES: 1. Right Vertebral Artery: The right vertebral artery flow direction is antegrade. 2. Left Vertebral Artery: The left vertebral artery flow direction is antegrade. OTHER FINDINGS: 1. Right Brachial Blood pressure: 172 mmHg. 2. Left Brachial Blood pressure: mmHg. 3. No atherosclerotic calcification present IMPRESSION: RIGHT: Duplex scan does not suggest hemodynamically significant stenosis of the right extracranial carotid arteries. LEFT: Duplex scan does not suggest hemodynamically significant stenosis of the left extracranial carotid arteries.
--- NOTE | 2019-03-13 14:57 | CARD ---
APPROVED REPORT Date of service: 03/12/2019 EKG Measurement Heart [id number] <Conclusion> Sinus bradycardia with sinus arrhythmia with 1st degree AV block Left axis deviation Septal infarct, age undetermined Abnormal ECG
--- NOTE | 2019-03-13 16:18 | CP.PCM.PN ---
Subjective - Date & Time of Evaluation Date of Evaluation: 03/13/19 Time of Evaluation: 16:17 - Subjective Subjective: Robe Eisenberg PGY1 Progress Note for Dr. Diehl Patient was examined at bedside this morning. He reports feeling well today, and wants to go home. He has no complaints today. Objective - Vital Signs/Intake and Output Vital Signs (last 24 hours): Temp Pulse Resp BP Pulse Ox 98.8 F 64 20 157/83 H 100 03/13/19 07:00 03/13/19 12:27 03/13/19 07:00 03/13/19 12:27 03/13/19 07:00 Intake and Output: 03/13/19 03/13/19 06:59 18:59 Intake Total 600 Balance 600 - Medications Medications: Current Medications Amlodipine Besylate (Norvasc) 5 mg PO DAILY [facility] Last Admin: 03/13/19 12:26 Dose: 5 mg Dextrose (Dextrose 50% Inj) 0 ml IV STAT PRN; Protocol PRN Reason: Hypoglycemia Protocol Dextrose (Glutose 15) 0 gm PO ONCE PRN; Protocol PRN Reason: Hypoglycemia Protocol Folic Acid (Folic Acid) 1 mg PO DAILY [facility] Last Admin: 03/13/19 12:25 Dose: 1 mg Glucagon (Glucagen Diagnostic Kit) 0 mg IM STAT PRN; Protocol PRN Reason: Hypoglycemia Protocol Heparin Sodium (Porcine) (Heparin) 5,000 units SC Q12H [facility] Last Admin: 03/13/19 06:19 Dose: 5,000 units Hydralazine HCl (Apresoline) 25 mg PO BID [facility] Last Admin: 03/13/19 10:54 Dose: Not Given Hydrochlorothiazide (Hydrodiuril) 25 mg PO DAILY [facility] Last Admin: 03/13/19 12:26 Dose: 25 mg Lactated Ringer's (Lactated Ringer's) 1,000 mls @ 75 mls/hr IV .[id number] [facility] Last Admin: 03/13/19 08:43 Dose: Not Given Dextrose (Dextrose 5% In Water 1000 Ml) 1,000 mls @ 0 mls/hr IV .Q0M PRN; Protocol PRN Reason: Hypoglycemia Protocol Insulin Human Regular (Novolin R) 0 unit SC ACHS [facility]; Protocol Last Admin: 03/13/19 12:30 Dose: 1 unit Losartan Potassium (Cozaar) 100 mg PO DAILY [facility] Last Admin: 03/13/19 12:26 Dose: 100 mg Rosuvastatin Calcium (Crestor) 5 mg PO HS [facility] - Labs Labs: 03/13/19 07:45 03/13/19 07:45 PT 12.3 SECONDS (9.7-12.2) H 03/12/19 14:15 INR 1.1 03/12/19 14:15 APTT 27.7 SECONDS (21-34) 03/12/19 14:15 - Constitutional Appears: Well, No Acute Distress - Head Exam Head Exam: ATRAUMATIC, NORMOCEPHALIC - Eye Exam Eye Exam: EOMI, Normal appearance, PERRL Pupil Exam: NORMAL ACCOMODATION - ENT Exam ENT Exam: Mucous Membranes Moist, Normal Exam - Neck Exam Neck Exam: Full ROM, Normal Inspection - Respiratory Exam Respiratory Exam: Clear to Ausculation Bilateral, NORMAL BREATHING PATTERN. absent: Rales, Rhonchi, Wheezes - Cardiovascular Exam Cardiovascular Exam: REGULAR RHYTHM, +S1, +S2 - GI/Abdominal Exam GI & Abdominal Exam: Soft, Normal Bowel Sounds. absent: Tenderness - Extremities Exam Extremities Exam: Full ROM, Normal Inspection - Back Exam Back Exam: NORMAL INSPECTION - Neurological Exam Neurological Exam: Alert, Awake, CN II-XII Intact, Normal Gait, Oriented x3 - Psychiatric Exam Psychiatric exam: Normal Affect, Normal Mood Assessment and Plan - Assessment and Plan (Free Text) Assessment: Syncope Etiology: Vasovagal vs Hypoglycemia vs. Hypotension vs Cardiogenic EKG (03/12/19): Bradycardia @ 53 bpm; 1 degree AV block - TN interval 230ms; Left axis deviation; No acute ST/T wave changes Troponins negative CXR (03/12/19): Mild venous congestion. Patchy markings at lung bases. Tortuous ectatic aorta. Mild cardiomegaly. UDS negative CT head negative Carotid doppler: no significant stenosis b/l ECHO: performed, f/u report Type Two Diabetes Mellitus Accuchecks Hypoglycemia protocol NICOLA (MONIK on?) CKD Cr baseline on previous admissions (1.1) GFR 38 HTN resumed home meds Bradycardia HR 40s on presentation EKG (03/12/19): Bradycardia @ 53 bpm; 1 degree AV block - TN interval 230ms; Left axis deviation; No acute ST/T wave changes Monitor on tele baseline bradycardia as per pt PPX SCDs; Heparin 5k units SC Q12H GI not indicated HHD Dispo: if ECHO unremarkable, d/c tomorrow. Patient seen and case discussed with Dr. Diehl
--- NOTE | 2019-03-14 07:44 | CARD ---
APPROVED REPORT Date of service: 03/13/2019 EXAM: Two-dimensional and M-mode echocardiogram with Doppler and color Doppler. INDICATION Syncope RISK FACTORS Hypertension Hyperlipidemia Diabetes 2D DIMENSIONS IVSd1.2 (0.7-1.1cm)LVDd4.7 (3.9-5.9cm) PWd1.2 (0.7-1.1cm)LA Wubdnh77 (18-58mL) LVDs2.7 (2.5-4.0cm)FS (%) 41.5 % LVEF (%)72.4 (>50%)LVEF (Lyn's)68.34 % IVC0.00 cm M-Mode DIMENSIONS RVDd2.00 (2.1-3.2cm)Left Atrium (MM)3.37 (2.5-4.0cm) IVSd1.32 (0.7-1.1cm)Aortic Root3.53 (2.2-3.7cm) LVDd5.14 (4.0-5.6cm)Aortic Cusp Exc.2.21 (1.5-2.0cm) PWd1.16 (0.7-1.1cm)FS (%) 51 % LVDs2.53 (2.0-3.8cm)LVEF (%)70 (>50%) Mitral Valve MV E Tgvmhguf68.2cm/sMV A Eecfhsww31.6cm/sE/A ratio0.8 TDI Lateral E' Peak V7.90cm/sMedial E' Peak V5.96cm/sE/Lateral E'8.1 E/Medial E'10.8 Tricuspid Valve TR Peak Cdogsged327gp/sTR Peak Gr.[id number] LEFT VENTRICLE The left ventricle is normal size. There is normal left ventricular wall thickness. The left ventricular function is normal. The left ventricular ejection fraction is within the normal range. No regional wall motion abnormalities noted. Transmitral Doppler flow pattern is Grade I-abnormal relaxation pattern.Normal LV filling pressure No left ventricle thrombus noted on this study. There is no ventricular septal defect visualized. There is no left ventricular aneurysm. There is no mass noted in the left ventricle. RIGHT VENTRICLE The right ventricle is normal size. There is normal right ventricular wall thickness. The right ventricular systolic function is normal. ATRIA The left atrium size is normal. The right atrium size is normal. The interatrial septum is intact with no evidence for an atrial septal defect. AORTIC VALVE The aortic valve is normal in structure and function. No aortic regurgitation is present. There is no aortic valvular stenosis. There is no aortic valvular vegetation. MITRAL VALVE The mitral valve is normal in structure and function. There is no evidence of mitral valve prolapse. There is no mitral valve stenosis. There is no mitral valve regurgitation noted. TRICUSPID VALVE The tricuspid valve is normal in structure and function. There is no tricuspid valve regurgitation noted. There is no tricuspid valve prolapse or vegetation. There is no tricuspid valve stenosis. PULMONIC VALVE The pulmonary valve is normal in structure and function. There is no pulmonic valvular regurgitation. There is no pulmonic valvular stenosis. GREAT VESSELS The aortic root is normal in size. The ascending aorta is normal in size. The pulmonary artery is normal. The IVC is normal in size and collapses >50% with inspiration. PERICARDIAL EFFUSION The pericardium appears normal. There is no pleural effusion. <Conclusion> The left ventricular function is normal. The left ventricular ejection fraction is within the normal range. No regional wall motion abnormalities noted.
[2019-03-14 08:10] VITALS: PULSE 60; TEMP 97.5; O2SAT 99
[2019-03-14] MEDS: (Novolin R) Insulin Human Regular 100 units/ml vial SC SCH (08:25)
[2019-03-14 09:38] VITALS: BP 164/76
--- NOTE | 2019-03-14 13:21 | CP.PCM.DIS ---
Provider - Provider Date of Admission: 03/12/19 16:27 Attending physician: Raudel Mcgrath DO Time Spent in preparation of Discharge (in minutes): 70 Diagnosis - Discharge Diagnosis (1) Syncope Status: Acute (2) Diabetes Status: Chronic (3) Hypertension Status: Chronic Hospital Course - Lab Results Lab Results: Micro Results 03/12/19 17:14 Urine Random Urine Culture - Final Gram Positive Cocci Most Recent Lab Values WBC 3.7 K/uL (4.8-10.8) L 03/13/19 07:45 RBC 4.27 Mil/uL (4.40-5.90) L 03/13/19 07:45 Hgb 11.3 g/dL (12.0-18.0) L 03/13/19 07:45 Hct 32.2 % (35.0-51.0) L 03/13/19 07:45 MCV 75.3 fL (80.0-94.0) L 03/13/19 07:45 MCH 26.4 pg (27.0-31.0) L 03/13/19 07:45 MCHC 35.0 g/dL (33.0-37.0) 03/13/19 07:45 RDW 15.3 % (11.5-14.5) H 03/13/19 07:45 Plt Count 101 K/uL (130-400) L D 03/13/19 07:45 MPV 10.7 fL (7.2-11.7) 03/13/19 07:45 Neut % (Auto) 66.2 % (50.0-75.0) 03/13/19 07:45 Lymph % (Auto) 18.3 % (20.0-40.0) L 03/13/19 07:45 Mcdonald % (Auto) 11.8 % (0.0-10.0) H 03/13/19 07:45 Eos % (Auto) 2.5 % (0.0-4.0) 03/13/19 07:45 Baso % (Auto) 1.2 % (0.0-2.0) 03/13/19 07:45 Neut # (Auto) 2.4 K/uL (1.8-7.0) 03/13/19 07:45 Lymph # (Auto) 0.7 K/uL (1.0-4.3) L 03/13/19 07:45 Mcdonald # (Auto) 0.4 K/uL (0.0-0.8) 03/13/19 07:45 Eos # (Auto) 0.1 K/uL (0.0-0.7) 03/13/19 07:45 Baso # (Auto) 0.0 K/uL (0.0-0.2) 03/13/19 07:45 Differential Comment 03/13/19 07:45 PT 12.3 SECONDS (9.7-12.2) H 03/12/19 14:15 INR 1.1 03/12/19 14:15 APTT 27.7 SECONDS (21-34) 03/12/19 14:15 Sodium 139 mmol/L (132-148) 03/13/19 07:45 Potassium 3.9 mmol/L (3.6-5.2) 03/13/19 07:45 Chloride 104 mmol/L (98-107) 03/13/19 07:45 Carbon Dioxide 26 mmol/L (22-30) 03/13/19 07:45 Anion Gap 13 (10-20) 03/13/19 07:45 BUN 15 mg/dL (9-20) 03/13/19 07:45 Creatinine 1.2 mg/dL (0.8-1.5) 03/13/19 07:45 Est GFR ( Amer) > 60 03/13/19 07:45 Est GFR (Non-Af Amer) > 60 03/13/19 07:45 POC Glucose (mg/dL) 228 mg/dL (65-110) H 03/14/19 06:13 Random Glucose 163 mg/dL (75-110) H D 03/13/19 07:45 Calcium 8.9 mg/dl (8.6-10.4) 03/13/19 07:45 Phosphorus 1.9 mg/dL (2.5-4.5) L 03/13/19 07:45 Magnesium 2.0 mg/dL (1.6-2.3) 03/13/19 07:45 Total Bilirubin 0.7 mg/dL (0.2-1.3) 03/13/19 07:45 AST 20 U/L (17-59) 03/13/19 07:45 ALT 21 U/L (21-72) 03/13/19 07:45 Alkaline Phosphatase 85 U/L (38-126) 03/13/19 07:45 Total Creatine Kinase 48 U/L (55-170) L 03/13/19 02:35 CK-MB (Mass) < 0.22 ng/mL (0.0-3.38) 03/13/19 02:35 Troponin I < 0.0120 ng/mL (0.00-0.120) 03/13/19 02:35 NT-Pro-B Natriuret Pep 268 pg/mL (0-900) 03/12/19 14:27 Total Protein 6.4 g/dL (6.3-8.3) 03/13/19 07:45 Albumin 4.0 g/dL (3.5-5.0) 03/13/19 07:45 Globulin 2.5 gm/dL (2.2-3.9) 03/13/19 07:45 Albumin/Globulin Ratio 1.6 (1.0-2.1) 03/13/19 07:45 Triglycerides 236 mg/dL (0-149) H 03/13/19 07:45 Cholesterol 112 mg/dL (0-199) 03/13/19 07:45 LDL Cholesterol Direct 49 mg/dL (0-129) 03/13/19 07:45 HDL Cholesterol 29 mg/dL (30-70) L 03/13/19 07:45 Free T4 0.80 ng/dL (0.78-2.19) 03/13/19 07:45 TSH 3rd Generation 1.18 mIU/L (0.46-4.68) 03/13/19 07:45 Urine Opiates Screen Negative (NEGATIVE) 03/12/19 17:14 Urine Methadone Screen Negative (NEGATIVE) 03/12/19 17:14 Ur Barbiturates Screen Negative (NEGATIVE) 03/12/19 17:14 Ur Phencyclidine Scrn Negative (NEGATIVE) 03/12/19 17:14 Ur Amphetamines Screen Negative (NEGATIVE) 03/12/19 17:14 U Benzodiazepines Scrn Negative (NEGATIVE) 03/12/19 17:14 U Oth Cocaine Metabols Negative (NEGATIVE) 03/12/19 17:14 U Cannabinoids Screen Negative (NEGATIVE) 03/12/19 17:14 - Hospital Course Hospital Course: Upon Admission: 68 year old male with a PMHx of HTN, HLD and DM presented to the ED via EMS after syncopal episode. Patient reports being at [employer] today. He said he sat down in a chair "because he was feeling hot." States he lost consciousness and hit his head on the pavement. Admits prodrome of dizziness right before losing consciousness, but denies chest pain or palpitations. Patient states he also became incontinent to bowel and bladder. EMS notes initial BG was 258. He denies history of seizure, and states that no observer at the market "saw him shaking." Admits checking his blood sugar at home and states it was around "150" this AM. He states he had his normal breakfast of oatmeal this morning then took his DM/HTN meds "as he always does." Admits previous admission at [facility] for "low blood pressure." He states he last saw his manager float, Dr Weeks "3 months ago" and denies history of stent placement. Patient was admitted for syncope. Hopsital Course: CT head was negative for any acute intracranial findings. CXR showed mild venous congestion. Patient reported resolution of symptoms, and that he had experienced episodes of syncope in the past when not eating regular meals. Carotid US showed no stenosis b/l. ECHO showed LVEF of 72%, no other abnormal findings. EKG showed 1st degree heart block. Patient was deemed hemodynamically stable for discharge. Upon Discharge: Patient was deemed stable for discharge to home. He was instructed to follow up with his primary physician and manager float. Patient understood instructions and agreed. Discharge Exam - Head Exam Head Exam: ATRAUMATIC, NORMAL INSPECTION, NORMOCEPHALIC - Eye Exam Eye Exam: EOMI, Normal appearance, PERRL Pupil Exam: NORMAL ACCOMODATION - Respiratory Exam Respiratory Exam: Clear to PA & Lateral, NORMAL BREATHING PATTERN, UNREMARKABLE. absent: Rales, Rhonchi, Wheezes - Cardiovascular Exam Cardiovascular Exam: REGULAR RHYTHM, +S1, +S2. absent: Gallop, Rubs, Systolic Murmur - GI/Abdominal Exam GI & Abdominal Exam: Normal Bowel Sounds, Soft. absent: Distended, Tenderness - Extremities Exam Extremities exam: normal inspection - Neurological Exam Neurological exam: Alert, CN II-XII Intact, Normal Gait, Oriented x3, Reflexes Normal - Psychiatric Exam Psychiatric exam: Normal Affect, Normal Mood - Skin Skin Exam: Intact, Normal Color, Warm Discharge Plan - Discharge Medications Prescriptions: amLODIPine [Norvasc] 5 mg PO DAILY #14 tab Atorvastatin [Lipitor] 10 mg PO DAILY #14 tab Folic Acid 1 mg PO DAILY #14 tab hydrALAZINE [Apresoline] 25 mg PO BID #28 tab hydroCHLOROthiazide [Hydrodiuril] 25 mg PO DAILY #14 tab Losartan [Cozaar] 100 mg PO DAILY #14 tab MetFORMIN [glucoPHAGE] 1,000 mg PO BID #28 tab - Follow Up Plan Condition: GUARDED Disposition: HOME/ ROUTINE Instructions: Diabetes Diet , Syncope (Fainting) (DC), Diabetic Meal Planning , Syncope (DC), Syncope (GEN) Additional Instructions: Please follow up with your primary doctor, Dr. Aguayo within 1 week. Please follow up with your manager float, Dr. Weeks within 1 week. Please take your medications as prescribed. Please monitor your blood sugar and eat meals regularly. If symptoms return, return to the emergency department. Take care and be well.
--- NOTE | 2019-03-14 19:23 | CARD ---
APPROVED REPORT Date of service: 03/13/2019 EKG Measurement Heart [id number] <Conclusion> Sinus bradycardia with 1st degree AV block with premature atrial complexes Left axis deviation Septal infarct, age undetermined Abnormal ECG
== END 2019-03-14 12:25 | disposition home or self-care (01) ==
LOC: C.ER 13:52 → C.9E 16:27 → C.5S 17:26
PROVIDERS: ADMIT Hospitalist; ATTEND Hospitalist
DX: R55 Syncope and collapse (principal); E11.22 Type 2 diabetes mellitus with diabetic chronic kidney disease; E78.5 Hyperlipidemia, unspecified; I12.9 Hypertensive chronic kidney disease with stage 1 through stage 4 chronic kidney disease, or unspecified chronic kidney disease; N18.9 Chronic kidney disease, unspecified; R32 Unspecified urinary incontinence; R15.9 Full incontinence of feces; Z82.49 Family history of ischemic heart disease and other diseases of the circulatory system; Z83.3 Family history of diabetes mellitus; I95.9 Hypotension, unspecified; R00.1 Bradycardia, unspecified
CPT/HCPCS: 36415; 70450; 71046; 80053; 80061; 82948; 83735; 83880; 84100; 84439; 84443; 84484; 85025; 85610; 85730; 87086; 93005; 93306; 93880; 96360; 99285; G0378; G0480; J1644; J7030; J7070; J7120